=== PATIENT | male | born 1995 | race African-American/Black ===

== ENCOUNTER 2022-03-29 12:09 | Emergency (ER) | payer OTHER, SELFPAY ==
[2022-03-29 13:13] LABS: Bilirubin Negative (Negative); Blood, Urine Trace (Negative); Clarity Clear (Clear); Glucose, Urine (Dipstick) Negative (Negative); Ketone, Urine Negative (Negative); Leukocyte Negative (Negative); Nitrite Negative (Negative); Protein, Urine (Dipstick) Negative (Neg-Trace); Urobilinogen 0.2 mg/dL (Less than 2)
[2022-03-29 13:22] LABS: Specific Gravity, Urine 1.026 (1.002-1.036)
[2022-03-29] MEDS ORDERED: Azithromycin 250 MG TAB ONE (13:28)
[2022-03-29] MEDS ORDERED: cefTRIAXone\\ROCEPHIN 500 MG VIAL ONE (13:28)
[2022-03-29 13:33] LABS: RBC/HPF 0-3 HPF (0-3)
[2022-03-29 13:34] LABS: Bacteria/HPF 1+ HPF (None Seen)
[2022-03-29 13:35] LABS: Mucous/LPF 3+ LPF (<2+); Sperm/HPF Rare HPF (None Seen)
== END 2022-03-29 13:38 | disposition home or self-care (01) ==
LOC: BURERS 12:09
DX: R30.0 Dysuria (principal); Z20.2 Contact with and (suspected) exposure to infections with a predominantly sexual mode of transmission; F17.210 Nicotine dependence, cigarettes, uncomplicated
CPT/HCPCS: 81003; 81015; 96372; 99283; J0696